=== PATIENT | female | born 1970 | race Caucasian/White ===

== ENCOUNTER 2023-11-09 17:44 | Emergency (ER) | payer OTHER ==
[~2023-11-09] VITALS: Ht 160 cm; Wt 70.1 kg
[2023-11-09] MEDS ORDERED: CLONIDINE HCL0.1 MG PO (18:07)
[2023-11-09] MEDS ORDERED: VENTOLIN HFA18 GM INH (18:08)
[2023-11-09] MEDS ORDERED: CLONIDINE HCL0.2 MG PO (18:29)
[2023-11-09] MEDS ORDERED: PEPCID20 MG PO (18:29)
[2023-11-09] MEDS ORDERED: PREDNISONE20 MG PO (18:29)
[2023-11-09] MEDS ORDERED: HYDROXYZINE HCL25 MG PO (18:29)
[2023-11-09] MEDS ORDERED: NORVASC5 MG PO (18:38)
[2023-11-09] MEDS ORDERED: ALLERGY RELIEF25 MG PO (18:40)
[2023-11-09 19:05] VITALS: BP 177/92
== END 2023-11-09 19:06 | disposition home or self-care (01) ==
LOC: ED 17:44
DX: T78.40XA Allergy, unspecified, initial encounter (principal); I10 Essential (primary) hypertension; Z88.0 Allergy status to penicillin; Z88.2 Allergy status to sulfonamides; Z88.1 Allergy status to other antibiotic agents; Z79.899 Other long term (current) drug therapy
CPT/HCPCS: J7512; Q0163

== ENCOUNTER 2023-11-16 06:33 | Emergency (ER) | payer OTHER ==
[~2023-11-16] VITALS: Ht 160 cm; Wt 69.9 kg
[~2023-11-16 06:33] MED LIST: ALLERGY RELIEF25 MG PO; CLONIDINE HCL0.1 MG PO; CLONIDINE HCL0.2 MG PO; HYDROXYZINE HCL25 MG PO; NORVASC5 MG PO; PEPCID20 MG PO; PREDNISONE20 MG PO; VENTOLIN HFA18 GM INH
--- OUTSIDE RECORDS SUMMARY | 2023-11-16 06:40 | XMS ---
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 - 2 Visits in 30 Days CARE PROVIDERS -, [facility] Dentist: Electronic Warfare Operator [facility] PHONE: [phone] -, [place] Dentist: Electronic Warfare Operator [facility] PHONE: [phone] MADONNA PROCTOR Nurse Practitioner: Family Current PHONE: [phone] Christophe has no Care Guidelines for this patient. Dean VISIT COUNT (12 MO.) 2 DAMARI Lewis TOTAL 2 NOTE: Visits indicate total known visits. ED/UCC VISIT TRACKING (12 MO.) 11/16/2023 06:34 DAMARI Martinez [place] TYPE: Emergency COMPLAINT: - COLD SYMPTOMS 11/09/2023 17:45 DAMARI Martinez [place] TYPE: Emergency COMPLAINT: - ALLERGIC REACTION DIAGNOSES: - Allergy status to other antibiotic agents - Allergy status to penicillin - Allergy status to sulfonamides - Allergy, unspecified, initial encounter - Essential (primary) hypertension - Other long goods drier (current) drug therapy - Rash and other nonspecific skin eruption INPATIENT VISIT TRACKING (12 MO.) No inpatient visits to display in this time frame [email or web address]
[2023-11-16 07:32] VITALS: BP 168/93
== END 2023-11-16 07:33 | disposition home or self-care (01) ==
LOC: ED 06:33
DX: K08.89 Other specified disorders of teeth and supporting structures (principal); Z88.0 Allergy status to penicillin; Z88.1 Allergy status to other antibiotic agents; Z88.2 Allergy status to sulfonamides; Z79.899 Other long term (current) drug therapy
CPT/HCPCS: 64400; 99282-25